=== PATIENT | male | born 1945 | race African-American/Black ===

== ENCOUNTER 2017-12-21 14:51 | Emergency (ER) | payer OTHER ==
[~2017-12-21] VITALS: Ht 177.8 cm; Wt 75.0 kg
[2017-12-21 15:09] VITALS: BP 127/68; PULSE 57; RESP 18; TEMP 97.6; O2SAT 97
[2017-12-21] MEDS ORDERED: ASPI81TA16 PO (15:34)
[2017-12-21] MEDS ORDERED: ALPR.5 PO (15:34)
[2017-12-21] MEDS ORDERED: LOVA40TA PO (15:34)
[2017-12-21] MEDS ORDERED: AMLO5TAB2 PO (15:34)
[2017-12-21] MEDS ORDERED: LABE300T PO (15:34)
[2017-12-21] MEDS ORDERED: HYDR25TA5 PO (15:34)
[2017-12-21] MEDS ORDERED: LEXA10TA PO (15:34)
[2017-12-21] MEDS ORDERED: RIVA6CAP PO (15:34)
--- NOTE | 2017-12-21 15:54 | PD ---
HPI Chief Complaint: Headache Time Seen by Provider: 15:53 Travel History International Travel<30 days: No Contact w/Intl Traveler<30days: No Traveled to known affect area: No History of Present Illness HPI Patient comes in complaining of frontal area headache, pressure in description, 6 out of 10 in intensity, nonradiating, onset 2 weeks ago, intermittently occurring. Patient denies any alleviating or aggravating factors. Patient denies any associated factors such as fever, rash, photophobia, neck stiffness, neck pain, chest pain, abdominal pain, back pain, no lateralizing weakness, no numbness or tingling, no shortness of breath. No nondrug allergies Past medical history significant for CVA, hyperlipidemia, hypertension, and anxiety. PFSH Past Medical History Anxiety: Yes Cerebrovascular Accident: Yes Hypertension: Yes Triglycerides - High: Yes Tetanus Vaccination: > 5 Years Past Surgical History Surgical History: No Previous Surgery Social History Alcohol Use: No Tobacco Use: No Substance Use: No Allergies-Medications (Allergen,Severity, Reaction): Coded Allergies: No Known Allergies (Unverified , 12/21/17) Reported Meds & Prescriptions Reported Meds & Active Scripts Active Reported Xanax (Alprazolam) 0.5 Mg Tab 0.5 Mg PO Q8H PRN Aspirin Adult Low Strength (Aspirin) 81 Mg Tabdr 81 Mg PO DAILY Lexapro (Escitalopram Oxalate) 10 Mg Tab 10 Mg PO DAILY Hydrochlorothiazide 25 Mg Tab 25 Mg PO DAILY Rivastigmine 6 Mg Cap 6 Mg PO BID Amlodipine (Amlodipine Besylate) 5 Mg Tab 5 Mg PO BID Lovastatin 40 Mg Tab 40 Mg PO DAILY Labetalol (Labetalol HCl) 300 Mg Tab 150 Mg PO DAILY Review of Systems General / Constitutional: No: Fever Eyes: No: Visual changes HENT: Positive: Headaches Cardiovascular: No: Chest Pain or Discomfort Respiratory: No: Shortness of Breath Gastrointestinal: No: Abdominal Pain Genitourinary: No: Dysuria Musculoskeletal: No: Pain Skin: No Rash Neurologic: No: Weakness Psychiatric: No: Depression Endocrine: No: Polydipsia Hematologic/Lymphatic: No: Easy Bruising Physical Exam Narrative GENERAL: SKIN: Warm and dry. HEAD: Atraumatic. Normocephalic. EYES: Pupils equal and round. No scleral icterus. No injection or drainage. ENT: No nasal bleeding or discharge. Mucous membranes pink and moist. NECK: Trachea midline. No JVD. CARDIOVASCULAR: Regular rate and rhythm. RESPIRATORY: No accessory muscle use. Clear to auscultation. Breath sounds equal bilaterally. GASTROINTESTINAL: Abdomen soft, non-tender, nondistended. MUSCULOSKELETAL: Extremities without clubbing, cyanosis, or edema. No obvious deformities. NEUROLOGICAL: Awake and alert. No obvious cranial nerve deficits. Motor grossly within normal limits. Five out of 5 muscle strength in the arms and legs. Normal speech. PSYCHIATRIC: Appropriate mood and affect; insight and judgment normal. Data Data Last Documented VS Vital Signs Date Time Temp Pulse Resp B/P (MAP) Pulse Ox O2 Delivery O2 Flow Rate FiO2 12/21/17 16:09 99 12/21/17 15:09 97.6 57 18 127/68 (87) Orders Orders Ct Brain W/O Iv Contrast(Rout) (12/21/17 15:58) Ecg Monitoring (12/21/17 15:58) Iv Access Insert/Monitor (12/21/17 15:58) Oximetry (12/21/17 15:58) Sodium Chloride 0.9% Flush (Ns Flush) (12/21/17 16:00) Ondansetron Odt (Zofran Odt) (12/21/17 16:00) Morphine Inj (Morphine Inj) (12/21/17 16:00) MDM Medical Decision Making Medical Screen Exam Complete: Yes Emergency Medical Condition: Yes Medical Record Reviewed: Yes Differential Diagnosis Intracranial hemorrhage versus sinusitis versus tension headache Narrative Course CT head read by radiologist as no acute intracranial abnormalities, remote lacunar infarct left cerebellum Diagnosis Primary Impression: Sinus headache Patient Instructions: General Instructions, Sinusitis (GEN) Scripts Codeine-Acetaminophen (Codeine-Acetaminophen) 30-300 mg Tab 1 TAB PO Q4H Y for PAIN, #15 TAB 0 Refills Prov: Frederic Cooper MD 12/21/17 Amoxicillin-Clavulanate (Augmentin) 875-125 Mg Tab 1 TAB PO BID for Infection for 10 Days, #20 TAB 0 Refills Prov: Frederic Cooper MD 12/21/17 Disposition: 01 DISCHARGE HOME Condition: Stable Frederic Cooper MD Dec 21, 2017 15:54
[2017-12-21] MEDS ORDERED: SODIUM CHLORIDE 0.9% FLUSH 10 ML FLUSH IVF PRN (16:00)
[2017-12-21] MEDS ORDERED: ONDANSETRON ODT 4 MG TAB PO/SL ONE (16:00)
[2017-12-21] MEDS ORDERED: MORPHINE SULFATE 4 MG/ML INJ IV PUSH ONE (16:00)
[2017-12-21 16:09] VITALS: O2SAT 99
--- NOTE | 2017-12-21 16:47 | RADRPT ---
EXAM DATE: 12/21/2017 4:19 PM EDT AGE/SEX: 72 years / Male INDICATIONS: Right sided cephalgia for three days. CLINICAL DATA: This is the patient's initial encounter. Patient reports that signs and symptoms have been present for 3 days and indicates a pain score of 7/10. MEDICAL/SURGICAL HISTORY: Stroke. Hypertension. None. RADIATION DOSE: 56.35 CTDI (mGy) COMPARISON: No prior exams available for comparison. TECHNIQUE: CT of the head without contrast. Using automated exposure control and adjustment of the mA and/or kV according to patient size, radiation dose was kept as low as reasonably achievable to ob tain optimal diagnostic quality images. FINDINGS: Remote lacunar infarcts noted in the left cerebellar hemisphere. No intracranial mass, hemorrhage or shift. No hydrocephalus. No acute bony abnormalities. There is chronic left sphenoid sinusitis with mural thickening. CONCLUSION: 1. No acute intracranial abnormalities. Remote lacunar infarct left cerebellum. Electronically signed by: Reji Dolan MD 12/21/2017 4:46 PM EDT
[2017-12-21] MEDS ORDERED: CODE30TA2 PO (16:52)
[2017-12-21] MEDS ORDERED: AUGM875T3 PO (16:52)
[2017-12-21] MEDS ORDERED: AMOXICILLIN/CLAVULANATE K 875 MG TAB PO ONE (17:00)
== END 2017-12-21 17:14 | disposition home or self-care (01) ==
LOC: NEPE 14:51
DX: R51 Headache (principal); F41.9 Anxiety disorder, unspecified; I10 Essential (primary) hypertension
CPT/HCPCS: 70450; 96374; 99284; J2270